=== PATIENT | male | born 1975 | race Caucasian/White ===

== ENCOUNTER 2020-08-10 18:46 | Emergency (ER) | payer BC ==
[~2020-08-10] VITALS: Ht 185.4 cm; Wt 136.1 kg
[2020-08-10] MEDS ORDERED: IBU800 M1 PO (19:17)
[2020-08-10] MEDS ORDERED: ESCITALOPRAM OX10 MG PO (19:17)
[2020-08-10] MEDS ORDERED: METFORMIN HYDR500 MG PO (19:17)
[2020-08-10] MEDS ORDERED: ATORVASTATIN CA40 M1 PO (19:17)
[2020-08-10 19:28] LABS: BASO % 0.4 % (0.0-1.0); EOS # 0.4 10*3/uL (0.0-0.4); EOS % 3.8 % (1.0-4.0); HEMATOCRIT 43.6 % (42.0-52.0); LYMPH # 1.3 10*3/uL (1.3-4.4); LYMPH % 12.7 % (27.0-41.0); MEAN CELL VOLUME 89.3 fl (80.0-94.0); MEAN CORPUSCULAR HGB 29.3 pg (27.0-31.0); MEAN CORPUSCULAR HGB CONC 32.8 g/dl (33.0-37.0); MEAN PLATELET VOLUME 9.7 fl (9.6-12.3); MONO # 0.8 10*3/uL (0.1-1.0); MONO % 7.4 % (3.0-9.0); NEUT # 7.6 10*3/uL (2.3-7.9); NEUT % 75.3 % (47.0-73.0); PLATELET COUNT AUTOMATED 250 10*3/uL (130-400); RED BLOOD COUNT 4.88 10*6/uL (4.50-5.90); RED CELL DISTRI WIDTH 13.8 % (0-14.5); WHITE BLOOD COUNT 10.1 10*3/uL (4.8-10.8)
[2020-08-10 19:40] LABS: ACT PARTIAL THROMBO TIME 24.3 SECONDS (20.0-32.1); INTERNATIONAL NORM RATIO 0.9 (2.0-3.5)
[2020-08-10 19:46] LABS: ALBUMIN 3.4 gm/dl (3.1-4.5); ALKALINE PHOSPHATASE 83 U/L (45-117); BUN 9 mg/dl (7-24); CHLORIDE 108 mmol/L (98-107); CREATININE 0.87 mg/dL (0.70-1.30); POTASSIUM 3.7 mmol/L (3.5-5.1); SGOT/AST 12 IU/L (3-35); SGPT/ALT 39 U/L (12-78); SODIUM 141 mmol/L (136-145); TOTAL PROTEIN 7.3 gm/dL (6.4-8.2)
[2020-08-10 19:50] LABS: TROPONIN I < 0.015 ng/ml (<0.045)
[2020-08-10] MEDS ORDERED: PROTONIX20 MG PO (21:33)
== END 2020-08-10 22:10 | disposition home or self-care (01) ==
LOC: ED 18:46
PROVIDERS: Nurse Practitioner Family
DX: J04.0 Acute laryngitis (principal); K21.9 Gastro-esophageal reflux disease without esophagitis; I10 Essential (primary) hypertension; E78.5 Hyperlipidemia, unspecified; E11.9 Type 2 diabetes mellitus without complications; Z79.899 Other long term (current) drug therapy; Z79.84 Long term (current) use of oral hypoglycemic drugs

== ENCOUNTER 2020-09-26 23:01 | Emergency (ER) | payer BC ==
[~2020-09-26 23:01] MED LIST: ATORVASTATIN CA40 M1 PO; ESCITALOPRAM OX10 MG PO; IBU800 M1 PO; METFORMIN HYDR500 MG PO; PROTONIX20 MG PO
[2020-09-27] MEDS ORDERED: AUGMENTIN 875875 MG PO (01:08)
== END 2020-09-27 01:00 | disposition home or self-care (01) ==
LOC: ED 23:01
DX: J32.9 Chronic sinusitis, unspecified (principal); Z20.822 Contact with and (suspected) exposure to COVID-19; I10 Essential (primary) hypertension; E11.9 Type 2 diabetes mellitus without complications; E78.5 Hyperlipidemia, unspecified; Z79.899 Other long term (current) drug therapy

== ENCOUNTER 2021-03-06 07:03 | Emergency (ER) | payer BC ==
[~2021-03-06] VITALS: Ht 185.4 cm; Wt 136.1 kg
[~2021-03-06 07:03] MED LIST changes: +AUGMENTIN 875875 MG PO
[2021-03-06] MEDS ORDERED: LISINOPRIL20 MG PO (08:00)
== END 2021-03-06 12:53 | disposition home or self-care (01) ==
LOC: ED 07:03
DX: U07.1 COVID-19 (principal); J12.82 Pneumonia due to coronavirus disease 2019; I10 Essential (primary) hypertension; E78.5 Hyperlipidemia, unspecified; E11.9 Type 2 diabetes mellitus without complications; E66.9 Obesity, unspecified; Z79.899 Other long term (current) drug therapy